=== PATIENT | male | born 1985 | race Caucasian/White ===

== ENCOUNTER 2019-06-25 10:33 | Emergency (ER) | payer MEDICAID ==
[2019-06-25] MEDS ORDERED: LIDOCAINE 2%-EPI 1:100000 20 ML MDV SUBQ STA (11:06)
--- NOTE | 2019-06-25 12:27 | ED Physician Documentation ---
History of Present Illness - Stated complaint Stated Complaint: WOUND - Chief complaint Chief Complaint: Wound - History obtained from History obtained from: Patient - History of Present Illness Timing: How many days ago (4-5) - Additonal information Additional information: This is a 33-year-old man who presents with complaints that he has a boil on each buttock. They have been building up for for 5 days. He has had these before and had to have it opened up 1 time in the past. He has been poking or squeezing at this time it just seems to come on rapidly. Denies any history of MRSA but he does have a history of heroin abuse says that he has been clean for about a year. Does not feel nauseous or had any vomiting. No fever. No diabetes. He does smoke and has maybe 3 alcoholic beverages a week. He does have a history of asthma and uses albuterol. He is not currently employed. Review of Systems Constitutional: denies: Fever GI: denies: Nausea, Vomiting Skin: reports: Other (2 abscesses) Endocrine: reports: Other (No history of diabetes) PD PAST MEDICAL HISTORY - Past Medical History Past Medical History: Yes Cardiovascular: None Neuro: CVA, Seizure disorder HEENT: None - Past Surgical History Past Surgical History: No - Present Medications Home Medications: Ambulatory Orders Medication Instructions Recorded Confirmed Albuterol Sulfate [Albuterol 1 puffs INH QID PRN 06/25/19 06/25/19 Sulfate Hfa] Cephalexin [Keflex] 500 mg PO Q6H #28 capsule 06/25/19 Sulfamethox/Trimeth 800/160 1 each PO BID #14 tablet 06/25/19 [Bactrim Ds 800/160] - Allergies Allergies/Adverse Reactions: Allergies Allergy/AdvReac Type Severity Reaction Status Date / Time No Known Drug Allergies Allergy Verified 06/25/19 10:44 - Social History Does the pt smoke?: Yes Smoking Status: Current every day smoker Does the pt drink ETOH?: Yes Does the pt have substance abuse?: No - Immunizations Immunizations are current?: Yes PD ED PE NORMAL - Vitals Vital signs reviewed: Yes - General General: Alert and oriented X 3, No acute distress, Well developed/nourished - HEENT HEENT: Atraumatic - Cardiac Cardiac: RRR - Respiratory Respiratory: No respiratory distress - Derm Derm: Other (There is a tender fluctuant erythematous mass on the right and left buttock. There is more erythema surrounding the one on the right buttock. They are exquisitely tender. Both are consistent with abscesses.) - Extremities Extremities: Other - Neuro Neuro: Alert and oriented X 3, No motor deficit, No sensory deficit, Normal speech - Psych Psych: Normal mood, Normal affect Results - Vitals Vitals: Vital Signs - 24 hr 06/25/19 06/25/19 10:42 12:53 Temperature 35.8 C L Heart Rate 86 89 Respiratory 18 16 Rate Blood Pressure 146/76 H 154/101 H O2 Saturation 95 98 Oxygen O2 Source Room air Procedures - Abscess I&D (location) r buttock Preparation: Chlorhexadine, Lidocaine 2 %, With epi Incision: Incised with scalpel, Purulent drainage, Loculations broken, Irrigated, Packed, Culture obtained Other: Pt tolerated well, Dressing applied, Antibiotic prescribed L buttock Preparation: Chlorhexadine, Lidocaine 2 %, With epi Incision: Incised with scalpel, Purulent drainage, Loculations broken, Irrigated, Packed Other: Pt tolerated well, Dressing applied, Antibiotic prescribed PD MEDICAL DECISION MAKING - ED course Complexity details: d/w patient ED course: Both of these abscesses were quite deep and took several inches of packing. The right buttock has quite a area of erythema and cellulitis surrounding it so I am going to place him on Keflex and Bactrim until we know the results of the culture. Patient does have a history of drug abuse but denies any history of MRSA in the past. Hopefully will be able to have him follow-up with the wound care clinic for packing removal and repacking of these. Otherwise he would typically follow-up with a primary care provider I given him a referral to [facility]. If he cannot get into see them he will have to return here to the emergency department as I think these are going to require packing changes. He is not prescribed any narcotic pain medications encouraged use Tylenol and/or ibuprofen. He may shower but I would keep these covered because they will drain. Departure - Departure Disposition: 01 Home, Self Care Clinical Impression: Abscess Condition: Good Instructions: ED Abscess IandD Follow-Up: [facility] [Provider Group] [facility] [Provider Group] Prescriptions: Cephalexin [Keflex] 500 mg PO Q6H #28 capsule Sulfamethox/Trimeth 800/160 [Bactrim Ds 800/160] 1 each PO BID #14 tablet Comments: You may shower and keep these clean. Change the dressings often so that you are getting the drainage off the skin. Take the antibiotic as prescribed is 4 times a day and Bactrim twice a day. Use ibuprofen, naproxen or Tylenol [id number] for pain. Contact the wound care clinic to see if they are able to do the packing changes for you. Follow-up at [facility] for recheck and for packing changes if unable to be done at the wound care clinic. If all else fails you may return here for packing removal and reevaluation in 2 days. Return if you develop a fever, or vomiting and cannot keep anything down or the redness continues spreading and the pain is increasing . Discharge Date/Time: 06/25/19 12:54
[2019-06-25 12:54] VITALS: BP 154/101
== END 2019-06-25 12:54 | disposition home or self-care (01) ==
LOC: ED 10:33
DX: L02.31 Cutaneous abscess of buttock (principal); L03.317 Cellulitis of buttock; F17.200 Nicotine dependence, unspecified, uncomplicated
CPT/HCPCS: 10061; 87070; 87205